=== PATIENT | female | born 1985 | race Hispanic/Latino ===

== ENCOUNTER 2019-02-17 02:48 | Inpatient (IN) | payer OTHER ==
[2019-02-17] MEDS ORDERED: BUTORPHANOL 1 MG/ML INJ IV PRN (04:48)
[2019-02-17] MEDS ORDERED: MIDAZOLAM HCL 2 MG/2 ML INJ IV PRN (04:48)
[2019-02-17] MEDS ORDERED: Ringers Lactate 1,000 ML IV PRN (04:48)
[2019-02-17] MEDS ORDERED: METHYLERGONOVINE 0.2MG/ML AMP IM PRN (04:48)
[2019-02-17] MEDS ORDERED: MEPERIDINE HCL 25 MG/0.5 ML IV PRN (04:48)
[2019-02-17] MEDS ORDERED: CARBOPROST TROME 250 MCG/ML IM PRN (04:48)
[2019-02-17] MEDS ORDERED: PROMETHAZINE 25 MG/ML VIAL IM PRN (04:48)
[2019-02-17 04:59] VITALS: BMI 32.1
[2019-02-17] MEDS ORDERED: OXYTOCIN/LR 1,000 ML IV SCH (05:00)
[2019-02-17] MEDS ORDERED: Ringers Lactate 1,000 ML IV SCH (05:00)
[2019-02-17] MEDS ORDERED: OXYTOCIN/LR 20 UNIT/1,000 ML BAG IV SCH ×2 (05:30→14:00)
[2019-02-17 05:31] LABS: RPR Titer ND
[2019-02-17 05:37] LABS: Urine Appearance CLEAR; Urine Bilirubin NEGATIVE (NEG); Urine Blood TRACE (NEG); Urine Color YELLOW; Urine Glucose NEGATIVE (NEG); Urine Protein 1+ (NEG); Urine Specific Gravity 1.025 (1.005-1.030); Urine Urobilinogen 0.2 mg/dL (0.2-1.0); Urine pH 6.5 (5.0-7.0)
[2019-02-17 05:39] LABS: Absolute Lymphocytes (CBC) 1.9 K/uL (0.7-4.9); Absolute Monocytes 0.6 K/uL (0.1-1.3); Absolute Neutrophil 7.8 K/uL (1.8-8.0); Basophils % 0.2 % (0-1.3); Eosinophils % 0.8 % (0-4.4); Hematocrit 36.5 % (36.0-45.0); Lymphocytes % 18.7 % (15.3-44.8); MPV 10.6 fL (7.6-11.3); Monocytes % 5.3 % (3.3-12.3); RBC Red Blood Cell Count 4.08 M/uL (3.86-4.86)
[2019-02-17 05:54] LABS: Urine Microscopic Reflex ORDER UMIC
[2019-02-17 05:58] LABS: Urine Bacteria <20 /HPF (<20); Urine Culture Reflex Order REFLEXED
[2019-02-17] MEDS ORDERED: ROPIVACAINE HCL 100 ML IV PRN (07:28)
[2019-02-17] MEDS ORDERED: FENTANYL CITR 100 MCG/2 ML IV ONE (07:31)
[2019-02-17] MEDS ORDERED: ROPIVACAINE HCL 0.2% 20ML AMP IV ONE (07:33)
[2019-02-17] MEDS ORDERED: LIDOCAINE 1.5% W/EPI AMP 5 ML ONE (09:47)
[2019-02-17] MEDS ORDERED: FENTANYL CITR 100 MCG/2 ML ONE (11:42)
--- NOTE | 2019-02-17 12:14 | PN ---
2, para 1, 39 weeks 2 days. Cervix is now 4 cm, 50% effaced, vertex, -1 station. Rupture of membranes, clear fluid. FHTs normal, reactive. We will start to hydrate the patient and we will re quest epidural as soon as possible. RICK/TONE Voice ID: [id number] Report ID: [id number]
[2019-02-17] MEDS ORDERED: DOCUSATE NA/SENNA CONC 1 TAB PO PRN (13:11)
[2019-02-17] MEDS ORDERED: ACETAMINOPHEN 500 MG TAB PO PRN (13:11)
[2019-02-17] MEDS ORDERED: Oxycodone HCl/Acetaminophen 1 TAB TAB PO PRN ×2 (13:11)
[2019-02-17] MEDS ORDERED: DIPHENHYDRAMINE 25 MG TAB/CAP PO PRN (13:11)
[2019-02-17] MEDS ORDERED: BISACODYL 10 MG RECTAL SUPP RECT PRN (13:11)
--- NOTE | 2019-02-17 16:50 | PN ---
The patient is now 9, 9+ 0 station. Epidural was not functioning to optimal standards, so Dr. Jose kennedy ave her some fentanyl into the epidural area. She is feeling much better now but has no urge to push . So, we will wait for pressure sensation to built where she can push more effectively. RICK/TONE Voice ID: [id number] Report ID: [id number]
[2019-02-17] MEDS: IBUPROFEN 200 MG TAB PO PRN (20:59)
[2019-02-18] MEDS: IBUPROFEN 200 MG TAB PO PRN ×2 (03:54→12:33)
[2019-02-18 11:06] VITALS: BP 128/61; TEMP 97.6
[2019-02-18 20:53] LABS: RPR (Rapid Plasma Reagin) NON-REACT (NON-REACT)
--- NOTE | 2019-02-21 07:00 | OP ---
Surgeon: Edmond Vivar MD A 33-year-old female, 39 weeks gestation, 2, para 1, 3 cm on admission. Rupture of membranes at approximately 4 cm, clear fluid. At approximately 4+, the patient received epidural anesthesia, which then later in the labor was supplemented with fentanyl by Dr. Garcia. Second stage actually cons isted of only about 20 minutes of active pushing. She was complete for some time, but possibly an ho ur before she actually felt the urge to push. Spontaneous vaginal delivery of an estimated 8-pound p tiffanie female. Apgars 9 and 9. No episiotomy. No laceration. Schultze delivery of the placenta, whic h was inspected and noted be intact and normal. A 250-300 cc or less blood loss. Tolerated all proc edures well. Rh positive, immune to Rubella. Negative beta strep screen. Final Diagnoses: 1.Term intrauterine , 39 weeks. 2.Vaginal delivery. 3.Epidural anesthesia. RICK/TONE Voice ID: [id number] Report ID: [id number]
--- NOTE | 2019-02-21 07:03 | DS ---
Date of Discharge: 02/18/2019 Hospital Course: A 33-year-old, 2, para 1, 39 weeks gestation, delivered an estimated 8-poun d female, Apgars 9 and 9. No episiotomy. No laceration. Epidural anesthesia. Schultze delivery of the placenta. Estimated blood loss 250 cc or less. Rh positive, immune to Rubella. Negative beta strep screen. ; afebrile, ambulating and voiding. Lochia is normal. No post epidural pro blems. She has had her Tdap immunization. She will be dismissed later today to report back to [facility] in 6 weeks for followup. To report any temperature elevation of 100 degrees or greater, severe pain, heavy bleeding, or any other type of abnormalities. At her request, dismissed with tramadol fo r analgesia. She is bottle-feeding. Final Diagnoses: Term uterine 39 weeks. Vaginal delivery. Epidural anesthesia. RICK/TONE Voice ID: [id number] Report ID: [id number]
[2019-02-22 03:21] LABS: HBsAG Nonreactive (Nonreactive)
== END 2019-02-18 14:05 | disposition home or self-care (01) | DRG 807 ==
LOC: 2ND-WC 04:17
PROVIDERS: ADMIT Specialist; ATTEND Specialist
PROC: 10E0XZZ Delivery of Products of Conception, External Approach (ICD-10-PCS; principal; 2019-02-17)
DX: O80 Encounter for full-term uncomplicated delivery (principal); Z37.0 Single live birth; Z3A.39 39 weeks gestation of pregnancy
CPT/HCPCS: 36415; 81003; 81015; 85025; 86592; 86850; 86900; 86901; 87086; 87088; 87340; J2001; J2175; J2210; J2590; J2795; J3010